=== PATIENT | male | born 1995 | race Caucasian/White ===

== ENCOUNTER 2022-07-04 11:17 | Emergency (ER) | payer OTHER ==
[2022-07-04 12:23] LABS: HEMOGLOBIN 13.8 gm/dl (14.0-17.5); RED BLOOD COUNT 4.35 M/UL (4.20-5.50)
[2022-07-04 12:51] LABS: BUN/CREATININE RATIO 12 (0-10)
[2022-07-04] MEDS ORDERED: AMOXICILLIN500 M1 PO (15:59)
== END 2022-07-04 16:15 | disposition home or self-care (01) ==
LOC: ER1 11:17
PROVIDERS: Emergency Medicine
DX: J06.9 Acute upper respiratory infection, unspecified (principal); R68.84 Jaw pain; M79.605 Pain in left leg; R22.2 Localized swelling, mass and lump, trunk; Z20.822 Contact with and (suspected) exposure to COVID-19
CPT/HCPCS: 71045; 80053; 82550; 82553; 83880; 84484; 85025; 85379; 93005; 93971; 99285; Q9967; U0002